=== PATIENT | female | born 1960 | race Caucasian/White ===

== ENCOUNTER → 2018-09-28 | Outpatient (CLI) | payer BC ==
--- NOTE | 2018-09-28 16:38 | RAD ---
EXAM DESCRIPTION: Pelvis CLINICAL HISTORY: 57 years Female, M25.561, M25.551 COMPARISON: None. FINDINGS: Single view of the pelvis demonstrates bony pelvis intact. No hip fracture or dislocation is seen. The SI joints and pubic symphysis appears intact. No soft tissue foreign bodies or other abnormalities noted. IMPRESSION: Essentially normal pelvis one view. Electronically signed by: Joaquin Osei MD 09/28/2018 4:35 PM CDT
--- NOTE | 2018-09-28 16:39 | RAD ---
EXAM DESCRIPTION: Knee,Right Complete CLINICAL HISTORY: 57 years, Female, M25.561, M25.551 COMPARISON: None TECHNIQUE: Four views right knee FINDINGS: The knee is normally aligned and mineralized. No fracture or deformity or destructive process is seen. No effusion or mass or foreign body is noted. Mild degenerative changes are evident. IMPRESSION: 1. Normal right knee. Electronically signed by: Joaquin Osei MD 09/28/2018 4:36 PM CDT
== END ==
LOC: RAD 09:03
PROVIDERS: ATTEND Orthopaedic Surgery
DX: M25.561 Pain in right knee (principal); M25.551 Pain in right hip